=== PATIENT | female | born 1995 | race Caucasian/White ===

== ENCOUNTER 2016-09-10 20:34 | Emergency (ER) | payer MEDICAID ==
[2016-09-10 21:09] LABS: APPEARANCE CLOUDY (CLEAR); BILIRUBIN NEGATIVE (NEGATIVE); COLOR DK YELLOW (YELLOW); GLUCOSE NEGATIVE (NEGATIVE); KETONE NEGATIVE (NEGATIVE); LEUKOCYTE ESTERASE TRACE (NEGATIVE); NITRITE POSITIVE (NEGATIVE); PROTEIN TRACE mg/dL (NEGATIVE); UROBILINOGEN NORMAL (NORMAL)
[2016-09-10 21:15] LABS: BACTERIA MANY /hpf (NONE SEEN); WHITE CELLS - URINE 0-5 /hpf (0-5)
[2016-09-10 21:16] LABS: EPITHELIAL CELLS 0-5 /hpf (0-5)
== END 2016-09-10 22:06 | disposition home or self-care (01) ==
LOC: D.ER 20:34
PROVIDERS: Emergency Medicine
DX: N39.0 Urinary tract infection, site not specified (principal)

== ENCOUNTER 2017-02-07 18:02 | Emergency (ER) | payer MEDICAID | END 2017-02-07 19:19 | disposition home or self-care (01) | LOC: D.ER 18:02 | DX: S90.861A Insect bite (nonvenomous), right foot, initial encounter (principal); W57.XXXA Bitten or stung by nonvenomous insect and other nonvenomous arthropods, initial encounter; Y93.89 Activity, other specified; Y92.89 Other specified places as the place of occurrence of the external cause ==

== ENCOUNTER 2018-03-13 01:10 | Emergency (ER) | payer SELFPAY ==
[~2018-03-13] VITALS: Ht 160 cm; Wt 170.5 kg
[2018-03-13 01:29] VITALS: Ht 160 cm; Wt 170.5 kg
[2018-03-13] MEDS ORDERED: ZYRTEC10 MG PO (02:30)
[2018-03-13] MEDS ORDERED: AUGMENTIN 875-11 TAB PO (02:30)
[2018-03-13 02:45] VITALS: BP 129/77
== END 2018-03-13 02:53 | disposition home or self-care (01) ==
LOC: D.ER 01:10
DX: J06.9 Acute upper respiratory infection, unspecified (principal); H66.93 Otitis media, unspecified, bilateral; R09.89 Other specified symptoms and signs involving the circulatory and respiratory systems